=== PATIENT | male | born 1960 | race Caucasian/White ===

== ENCOUNTER 2024-04-10 13:45 | Emergency (ER) | payer MEDICARE, SELFPAY ==
--- NOTE | ~2024-04-10 | XR_ITS ---
XR chest 1V portable 04/10/2024 14:29 Indication: Altered mental status. Kyphosis. Procedure: AP portable chest Comparison: No prior studies for comparison. Findings: Heart size normal. Bibasilar airspace disease may represent atelectasis or developing pneum onia. No significant effusion. No pneumothorax. Impression: 1: Bibasilar infiltrates may represent atelectasis or pneumonia. Reviewed, dictated and finalized at location B. Impression: 1: Bibasilar infiltrates may represent atelectasis or pneumonia.
--- NOTE | ~2024-04-10 | CT_ITS ---
EXAMINATION: CT brain wo con DATE: 04/10/2024 14:43 INDICATION: Altered mental status TECHNIQUE: Computed tomography (CT) of the head was performed without intravenous contrast. Sagittal and coronal reconstructions were performed. The mA was adjusted according to patient size. Iterative reconstruction technique was employed. The dose-length product was 681.00 mGy-cm. COMPARISON: None FINDINGS: No acute intracranial hemorrhage, acute infarction or abnormal extra axial fluid collection. Small ol d lacunar infarct at the right omar. There is mild scattered white matter hypoattenuation consistent with chronic small vessel ischemic disease. Symmetric prominence of the sulci and ventricles consist ent with moderate to severe diffuse cerebral volume loss which is disproportionate for age. Ventricl es are normal and symmetric. No mass/mass effect. The orbits, paranasal sinuses and mastoid air cells are normal. IMPRESSION: 1. Small old lacunar infarct at the right omar. No acute intracranial process. 2. Moderate to severe diffuse volume loss which is disproportionate for age which is of indeterminate etiology. 3. Mild scattered white matter hypoattenuation consistent with chronic small vessel ischemic disease. Reviewed, dictated and finalized at location A. IMPRESSION: 1. Small old lacunar infarct at the right omar. No acute intracranial process. 2. Moderate to severe diffuse volume loss which is disproportionate for age whi ch is of indeterminate etiology. 3. Mild scattered white matter hypoattenuation consistent with chronic small ve ssel ischemic disease.
[2024-04-10 13:49] VITALS: BP 114/97; PULSE 61; RESP 10; TEMP 36.4; O2SAT 95
--- NOTE | 2024-04-10 13:54 | ED.GENADULT ---
HPI - General Adult General Chief complaint: Weakness Stated complaint: weakness History of Present Illness HPI narrative: 63-year-old male presents to the emergency department for evaluation for increased lethargy. Patient is A&O x1 and nonverbal at baseline. Patient does have a prior history of a CVA. Patient was at an adult care center when the staff felt he was more lethargic than normal. They states that he was resting more than usual and did rest his head on the table, they states this was unexpected behavior. Upon arrival emergency department patient appears alert and appropriate. Patient does not appear to have any lethargy. Is nonverbal so a has no complaints. Related Data Allergies Allergy/AdvReac Type Severity Reaction Status Date / Time lamotrigine [From Lamictal] Allergy Unknown Verified 04/10/24 14:00 pollen extracts Allergy Unknown Verified 04/10/24 14:00 trazodone Allergy Unknown Verified 04/10/24 14:00 Review of Systems Review of Systems: All systems reviewed & are unremarkable except as noted in HPI and below Exam Narrative: APPEARANCE: Well-appearing no distress HEAD: normocephalic, atraumatic. EYES: PERRLA/EOMI, conjunctivae clear. NOSE: Normal no drainage EARS:TMS clear with good light reflex. THROAT: Pharynx clear, no exudate. NECK: Supple. No adenopathy, no masses. RESPIRATORY: Airway patent, respirations nonlabored. Clear to auscultation bilaterally, no rales, rhonchi, wheezing. CARDIOVASCULAR: Regular rate and rhythm without murmurs rubs or gallops. ABDOMINAL: Soft, nontender, nondistended, normal bowel sounds MUSCULOSKELETAL: Moves all extremities. Strength/ROM intact, No edema, No calf tenderness. NEURO: Alert. With no focal neuro deficit SKIN: Warm, dry. Normal Color Course Course Emergency Course: Patient was treated with antibiotics for possible pneumonia. Caregiver was updated on the results of the workup and plan for treatment. Vital Signs Vital signs: Vital Signs Temperature 97.5 F L 04/10/24 13:49 Pulse Rate 61 04/10/24 13:49 Respiratory Rate 10 L 04/10/24 13:49 Blood Pressure 114/97 H 04/10/24 13:49 Pulse Oximetry 95 04/10/24 13:49 Oxygen Delivery Room Air 04/10/24 13:49 Temperature 97.5 F L 04/10/24 13:49 Pulse Rate 61 04/10/24 13:49 Respiratory Rate 10 L 04/10/24 13:49 Blood Pressure 114/97 H 04/10/24 13:49 Pulse Oximetry 95 04/10/24 13:49 Oxygen Delivery Room Air 04/10/24 13:49 Medical Decision Making MDM Narrative Medical decision making narrative: 63-year-old male that is nonverbal presents emergency department for evaluation for increased lethargy. Patient is afebrile with no leukocytosis and a stable hemoglobin of 15.4. Patient has no acute abnormalities on his CMP. UA was negative for infection. Patient was negative for influenza RSV COVID and strep. Chest x-ray was concerning for atelectasis versus pneumonia. Head CT was negative for acute intracranial abnormality. Patient is being treated with p.o. antibiotics for possible underlying pneumonia. Caregiver was updated on the plan for treatment in the results of the workup. Patient will be discharged back to his care facility as he is saturating well on room air and is in no distress. All questions concerns were addressed but caregiver and patient was well-appearing at time of transfer. Differential Diagnosis Differential Diagnosis: Intracranial abnormality, urinary tract infection, COVID, influenza, RSV, strep, pneumonia Vital Signs Vital Signs: Vital Signs Temperature 97.5 F L 04/10/24 13:49 Pulse Rate 61 04/10/24 13:49 Respiratory Rate 10 L 04/10/24 13:49 Blood Pressure 114/97 H 04/10/24 13:49 Pulse Oximetry 95 04/10/24 13:49 Oxygen Delivery Room Air 04/10/24 13:49 Temperature 97.5 F L 04/10/24 13:49 Pulse Rate 61 04/10/24 13:49 Respiratory Rate 10 L 04/10/24 13:49 Blood Pressure 114/97 H 04/10/24 13:49 Pulse Oximetry 95
--- NOTE | 2024-04-10 14:02 | ECG_ITS ---
Test Date: 2024-04-10 14:04:43 Measurements Intervals [place] Rate: 63 P: 0 TX: 0 QRS: 64 QRSD: 94 T: 66 QT: 410 QTc: 423 Interpretive Statements SINUS RHYTHM VOLTAGE CRITERIA FOR LVH MINIMAL Q WAVES- INF/LAT LEADS BASELINE ARTIFACT- I, II, III, AVR, AVL, AVF, V1-V6 BORDERLINE ECG No previous ECG available for comparison Electronically Signed On 04-10-2024 14:07:08 CDT by Theodore Vences D.O.
[2024-04-10 14:31] LABS: Basophils Absolute Auto 0.1 K/mm3 (0.0-0.1); Basophils Percent Auto 1.2 % (0.2-1.2); Eosinophils Absolute Auto 0.1 K/mm3 (0-0.3); Eosinophils Percent Auto 1.6 % (0-4.4); Hematocrit 46.9 % (42.0-52.0); Hemoglobin 15.4 g/dL (14.0-18.0); Immature Granulocyte Absolute 0.03 K/mm3 (0.00-0.031); Immature Granulocyte Percent A 0.7 % (0-0.5); Lymphocytes Percent Auto 46.5 % (18.3-44.2); Mean Corpuscular HGB Conc 32.8 g/dl (32-36); Mean Corpuscular Hemoglobin 33.2 pg (26-34); Mean Corpuscular Volume 101.1 fl (80-100); Mean Platelet Volume 9.1 fl (7.4-10.4); Monocytes Absolute Auto 0.5 K/mm3 (0.1-0.6); Monocytes Percent Auto 10.5 % (2.6-8.5); Neutrophils Absolute Auto 1.7 K/mm3 (1.3-6.7); Neutrophils Percent Auto 39.5 % (45.5-73.1); Platelet Count Result 240 k/mm3 (150-375); Red Blood Count 4.64 M/mm3 (4.6-6.20); Red Cell Distribution Width 13.1 % (11.5-14.5); White Blood Count 4.3 K/mm3 (4.5-10.0)
[2024-04-10 14:47] LABS: Alanine Aminotransferase 14 U/L (6-50); Albumin Level 3.8 g/dL (3.5-5.1); Alkaline Phosphatase 99 U/L (38-126); Anion Gap 10 mmol/L (4-12); Aspartate Amino Transferase 28 U/L (17-59); Bilirubin,Total 0.4 mg/dL (0.2-1.3); Blood Urea Nitrogen 11 mg/dL (9-20); Carbon Dioxide 29 mmol/L (22-30); Chloride 103 mmol/L (98-107); Estimated Glomerular Filt Rate > 60; Glucose 89 mg/dL (65-110); Potassium 4.1 mmol/L (3.4-5.0); Sodium 142 mmol/L (137-145)
[2024-04-10 14:55] LABS: Strep Group A RT-PCR NOT DETECTED (Negative)
[2024-04-10 15:08] LABS: Influenza A QL RT-PCR Negative (Negative); Influenza B QL RT-PCR Negative (Negative); RSV RNA, RT-PCR Negative (Negative); SARS-CoV-2 RNA PCR Negative (Negative)
[2024-04-10 15:27] LABS: Add Urine Microscopic? NO; Appearance Urine Clear (Clear); Bilirubin Urine Negative (Negative); Blood Urine Negative (Negative); Color Urine Yellow (Yellow); Glucose Urine UA Negative (Negative); Ketones Urine Negative (Negative); Leukocyte Esterase Ur Negative LEU/UL (Negative); Nitrate Urine Negative (Negative); Protein Urine Negative (Negative); Specific Grav Ur 1.019 (1.001-1.035)
[2024-04-10] MEDS: AZITHROMYCIN 250 MG TABLET 500 MG PO (16:37)
[2024-04-10] MEDS: AMOXICILLIN/CLAVULANATE K 875-125 MG TAB 1 TABLET PO (16:37)
== END 2024-04-10 16:40 | disposition home or self-care (01) ==
PROVIDERS: Emergency Provider Emergency Medicine
DX: J18.9 Pneumonia, unspecified organism (principal); Z20.822 Contact with and (suspected) exposure to COVID-19; R94.31 Abnormal electrocardiogram [ECG] [EKG]
CPT/HCPCS: 36415; 70450; 71045; 80053; 81003; 85025; 87637; 87651; 93005; 99284; A9270